=== PATIENT | female | born 1955 ===

== ENCOUNTER 2023-12-26 22:26 | Outpatient (CLI) | payer MEDICARE, SELFPAY ==
[2023-12-29 09:09] LABS: 25-Hydroxy D Total 64 ng/mL; 25-Hydroxy D2 <4.0 ng/mL; 25-Hydroxy D3 64 ng/mL
== END 2023-12-26 22:27 | disposition home or self-care (01) ==
LOC: LBO 22:28
PROVIDERS: Visit Provider General Practice
DX: M81.0 Age-related osteoporosis without current pathological fracture (principal)
CPT/HCPCS: 36415; 82306